=== PATIENT | male | born 1970 | race Caucasian/White ===

== ENCOUNTER → 2025-01-24 | Outpatient (CLI) | payer OTHER ==
--- NOTE | 2025-01-25 10:34 | NM ---
EXAMINATION TYPE: NM myocardial SPECT single DATE OF EXAM: 01/25/2025 COMPARISON: NONE CLINICAL INDICATION: Male, 54 years old with history of R94.31 ABN EKG Z01.818 PRE OP CLEARANCE; Following administration of 10.65 mCi Tc 99m Sestamibi. Rest images obtained. FINDINGS: Stress imaging canceled due to patient's symptoms of bradycardia and lightheadedness. Rest images showed diminished uptake in the septal wall could reflect ischemia versus infarct. Abnorm al end diastolic volume of 169 cc is noted raising concern for dilated cardiomyopathy. Calculated ejection fraction is 50% IMPRESSION: As above. [facility], , 01/25/2025 10:31 AM
== END | disposition home or self-care (01) ==
LOC: RADNMMAIN 07:59
PROVIDERS: ATTEND Family Medicine
DX: Z01.818 Encounter for other preprocedural examination (principal); R94.31 Abnormal electrocardiogram [ECG] [EKG]
CPT/HCPCS: 78451; A9500